=== PATIENT | female | born 1965 | race Caucasian/White ===

== ENCOUNTER 2016-06-16 06:30 | Emergency (ER) | payer MEDICARE, OTHER ==
--- NOTE | 2016-06-16 07:42 | ED CLINICAL REPORT ---
Clinical Report - Physicians/Mid Levels [facility] [address] [place] [address] 06/16/2016 6:31 Patient: SHARIF WILCOX Time Seen: 06:45; initial patient contact. Arrived- By private vehicle. Historian- patient. HISTORY OF PRESENT ILLNESS Is still present. Chief Complaint: HEADACHE. This started about 2 days ago. It was gradual in onset. Onset during light activity. It is described as "pain". Located in the region of the right eye and left eye and occipital region and has had posterior neck pain. Not located in the facial region. At its maximum, severity described as moderate. When seen in the E.D., severity described as moderate. Modifying factors: worsened by moving head; relieved by nothing. The patient has had nausea. No preceding symptoms, blurred vision, photophobia, numbness or weakness. No vomiting. Similar symptoms previously: Many times. Recent medical care: Not recently seen/assessed. REVIEW OF SYSTEMS No fever, sinus pressure or chest pain. She has had muscle aches and a sore throat. All systems otherwise negative, except as recorded above. PAST HISTORY Chronic Headache. Migraine Headache. Atypical Chest Pain. Herpes Zoster. SURGERIES: Cholecystectomy. . Hysterectomy. SOCIAL HISTORY Current every day smoker. No alcohol use or drug use. ADDITIONAL NOTES The nursing notes have been reviewed with agreement regarding the chief complaint, PMH and patient medications and allergies. PHYSICAL EXAM Appearance: Alert. No acute distress. Head: No tenderness to palpation/percussion over the sinuses. Eyes: Pupils equal, round and reactive to light. Eyes normal inspection. No photophobia. Neck: Neck supple. Moderate muscle spasm of the right and left posterior neck. Soft tissue tenderness in the right upper neck area and left upper neck area. No meningeal signs. No vertebral tenderness. CVS: Normal heart rate and rhythm. Heart sounds normal. Respiratory: No respiratory distress. Breath sounds normal. Skin: No rash. Neuro: Oriented X 3. Alert. Mood/affect normal. Speech normal. Cranial nerves normal (as tested). No cerebellar findings. No motor deficit. No sensory deficit. Reflexes normal. PROGRESS AND PROCEDURES Course of Care: Toradol 60mg IM given. Physical exam findings are improved. Symptoms much better. Disposition: Discharged home in good and improved condition. Condition: good. CLINICAL IMPRESSION Episodic tension-type headache resistant to treatment. INSTRUCTIONS Your Current Medications: CONTINUE TAKING THE FOLLOWING MEDICATIONS: Tramadol HCL Oral : 100 mg 2x a day. Prescription Medications: Baclofen 10 mg: take 1 orally every 8 hours. Dispense thirty (30). No refills. Diclofenac 50 mg tablets: take 1 tablet orally every 8 hours as needed for pain or stiffness. Dispense thirty (30). No refill. Follow-up: Follow up with your doctor in about two days. Call for an appointment. Screening today revealed the patient's blood pressure to be in the hypertensive range. The patient should follow up with a primary care provider for blood pressure management. (Electronically signed by Juan Spain Dr. 06/16/2016 7:44)
--- NOTE | 2016-06-16 07:42 | ED ORDER SUMMARY ---
..... Patient: SHARIF WILCOX OrderSheet [facility] VisitID: [id number] [address] [place] [address] 51y, F Registration Date/Time: 06/16/2016 ORDER SHEET Weight: 56.6 kg (stated) Allergies: Gabapentin GENERAL ORDERS: Rapid Influenza Screen (Nasal Pharyngeal) (swab) Urgent (06:54 06/16/2016 JQuivey R.N. per protocol) (6:56 CHagerty ER Hydraulic Governor Assembler) Culture, Strep Screen Urgent (06:54 06/16/2016 JQuivey R.N. per protocol) (6:56 CHagerty ER Hydraulic Governor Assembler) MEDICATION ORDERS: Zofran ODT PO 4 mg (NOW) (06:54 06/16/2016 JQuivey R.N. per protocol) (6:55 JQuivey R.N.) Toradol IM 60 mg (NOW) (07:02 06/16/2016 Amanda Muller) (Ack 7:02 JQuivey R.N.) (7:08 JQuivey R.N.) IV FLUIDS: ORDER SHEET NOTES: [Electronically signed by Juan Spain Dr. (07:44 06/16/2016)] [Electronically signed by Keegan Jones R.N. (07:54 06/16/2016)] [Electronically locked/signed by Keegan Jones R.N. (07:54 06/16/2016)]
--- NOTE | 2016-06-16 07:42 | ED NURSING NOTES ---
Clinical Report - Nurses [facility] [address] [place] [address] 06/16/2016 6:31 Patient: SHARIF WILCOX TRIAGE Triage time 06:43. Acuity: LEVEL 3. Chief Complaint: HEADACHE, SORE THROAT and NAUSEA. 06:47. Alert. SEPSIS SCREEN: Sepsis Screen. Negative (no infection suspected/documented). SUE COMA SCORE: Sue Coma Scale: 15- eyes open spontaneously (4); best verbal response- oriented x 4 (5); best motor response- obeys commands (6). --06:47 Jensen Lock R.N. 06:43 06/16/16. BP: 137/97. HR: 75. RR: 16. O2 saturation: 100% on room air. Temp: 97.8 F (oral). Pain level now: 01/01. --06:47 Jensen Lock R.N. Weight: 56.6 kg stated. Height/Length: 58 inches Per Patient. BMI: 26.1. --06:45 Jensen Lock R.N. Medications Tramadol HCL Oral 100 mg, 2x a day. --06:45 Jensen Lock R.N. Medication/allergy information source: the patient. --06:47 Jensen Lock R.N. Allergies Gabapentin. --06:45 Jensen Lock R.N. History Arrived by private vehicle. Historian: patient. Accompanied by spouse. Primary physician (None). Onset. (2 days ago). 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 PAST MEDICAL HX: Immunizations: up-to-date. The patient has had a hysterectomy. SOCIAL HX: Current every day heavy tobacco smoker- less than 1 pack per day. No alcohol use or drug use. No infectious disease exposure. ABUSE ASSESSMENT: No report of abuse. FALL RISK ASSESSMENT: Fall risk assessment completed. No fall risk identified. NUTRITIONAL RISK ASSESSMENT: The nutritional risk assessment revealed no deficiencies. FUNCTIONAL ASSESSMENT: Functional assessment: no impairments noted. LEARNING NEEDS ASSESSMENT: The learning needs assessment revealed no barriers. SKIN INTEGRITY ASSESSMENT: Skin integrity risk assessment completed. No skin integrity risk identified. --06:47 Jensen Lock R.N. PROBLEMS: Chronic Headache. Migraine Headache. Atypical Chest Pain. Herpes Zoster. --06:46 Jensen Lock R.N. ADDITIONAL SURGERIES: Cholecystectomy. . Hysterectomy. --06:46 Jensen Lock R.N. Interventions ID band on patient. To treatment room. --06:47 Jensen Lock R.N. PHYSICAL ASSESSMENT 06:47. Ambulatory to room. GENERAL / NEURO / PSYCH: Alert. Oriented X 4. HEENT: No facial asymmetry noted. Mucous membranes are pink. RESPIRATORY: Respirations not labored. SKIN: Skin intact. Skin is warm and dry. Normal skin turgor. --06:47 Jensen Lock R.N. NURSING PROGRESS NOTES 06:47. Head of bed elevated. Two patient identifiers checked. Call light placed in reach. Bed placed in lowest position. Brakes of bed on. Patient ready for evaluation- chart flagged. --06:47 Jensen Lock R.N. 06:55 06/16/2016 Zofran ODT (Ondansetron) PO 4 mg given. Allergies verified and confirmed 5 rights. --06:55 Jensen Lock R.N. 07:06 06/16/2016 Toradol (Ketorolac Tromethamine) IM 60 mg given. Given in the left ventral gluteus. Allergies verified and confirmed 5 rights. --07:08 Jensen Lock R.N. 07:15. Care transferred and report given (Jayde HOFFMANN). --07:29 Jensen Lock R.N. DISPOSITION / DISCHARGE 07:50 06/16/16. Condition at departure: improved. The goals identified in the patient's plan of care were met. No learning barriers present. Discharge instructions provided and reviewed with the patient. Reviewed warnings. Reviewed medication(s). Treatments reviewed. Patient and machine guide base winder verbalized understanding. Written instructions provided in Maltese. The patient was discharged by the physician. She was discharged home and accompanied by family. She left the Emergency Department ambulatory and via private vehicle. Family member driving. FALL RISK ASSESSMENT: Fall risk assessment completed. No fall risk identified. --07:50 Keegan Jones R.N. 07:49 06/16/16. BP: 123/92. HR: 80. RR: 12. O2 saturation: 99% on room air. --07:50 Keegan Jones R.N. 07:50 06/16/16. Departure time: 07:50. --07:50 Keegan Jones R.N. Locked/Released at 06/16/2016 7:54 by Keegan Jones R.N.
--- NOTE | 2016-06-16 07:42 | ED NURSING NOTES ---
Clinical Report - Nurses [facility] [address] [place] [address] 06/16/2016 6:31 Patient: SHARIF WILCOX TRIAGE Triage time 06:43. Acuity: LEVEL 3. Chief Complaint: HEADACHE, SORE THROAT and NAUSEA. 06:47. Alert. SEPSIS SCREEN: Sepsis Screen. Negative (no infection suspected/documented). SUE COMA SCORE: Sue Coma Scale: 15- eyes open spontaneously (4); best verbal response- oriented x 4 (5); best motor response- obeys commands (6). --06:47 Jensen Lock R.N. 06:43 06/16/16. BP: 137/97. HR: 75. RR: 16. O2 saturation: 100% on room air. Temp: 97.8 F (oral). Pain level now: 01/01. --06:47 Jensen Lock R.N. Weight: 56.6 kg stated. Height/Length: 58 inches Per Patient. BMI: 26.1. --06:45 Jensen Lock R.N. Medications Tramadol HCL Oral 100 mg, 2x a day. --06:45 Jensen Lock R.N. Medication/allergy information source: the patient. --06:47 Jensen Lock R.N. Allergies Gabapentin. --06:45 Jensen Lock R.N. History Arrived by private vehicle. Historian: patient. Accompanied by spouse. Primary physician (None). Onset. (2 days ago). 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 PAST MEDICAL HX: Immunizations: up-to-date. The patient has had a hysterectomy. SOCIAL HX: Current every day heavy tobacco smoker- less than 1 pack per day. No alcohol use or drug use. No infectious disease exposure. ABUSE ASSESSMENT: No report of abuse. FALL RISK ASSESSMENT: Fall risk assessment completed. No fall risk identified. NUTRITIONAL RISK ASSESSMENT: The nutritional risk assessment revealed no deficiencies. FUNCTIONAL ASSESSMENT: Functional assessment: no impairments noted. LEARNING NEEDS ASSESSMENT: The learning needs assessment revealed no barriers. SKIN INTEGRITY ASSESSMENT: Skin integrity risk assessment completed. No skin integrity risk identified. --06:47 Jensen Lock R.N. PROBLEMS: Chronic Headache. Migraine Headache. Atypical Chest Pain. Herpes Zoster. --06:46 Jensen Lock R.N. ADDITIONAL SURGERIES: Cholecystectomy. . Hysterectomy. --06:46 Jensen Lock R.N. Interventions ID band on patient. To treatment room. --06:47 Jensen Lock R.N. PHYSICAL ASSESSMENT 06:47. Ambulatory to room. GENERAL / NEURO / PSYCH: Alert. Oriented X 4. HEENT: No facial asymmetry noted. Mucous membranes are pink. RESPIRATORY: Respirations not labored. SKIN: Skin intact. Skin is warm and dry. Normal skin turgor. --06:47 Jensen Lock R.N. NURSING PROGRESS NOTES 06:47. Head of bed elevated. Two patient identifiers checked. Call light placed in reach. Bed placed in lowest position. Brakes of bed on. Patient ready for evaluation- chart flagged. --06:47 Jensen Lock R.N. 06:55 06/16/2016 Zofran ODT (Ondansetron) PO 4 mg given. Allergies verified and confirmed 5 rights. --06:55 Jensen Lock R.N. 07:06 06/16/2016 Toradol (Ketorolac Tromethamine) IM 60 mg given. Given in the left ventral gluteus. Allergies verified and confirmed 5 rights. --07:08 Jensen Lock R.N. 07:15. Care transferred and report given (Jayde HOFFMANN). --07:29 Jensen Lock R.N. DISPOSITION / DISCHARGE 07:50 06/16/16. Condition at departure: improved. The goals identified in the patient's plan of care were met. No learning barriers present. Discharge instructions provided and reviewed with the patient. Reviewed warnings. Reviewed medication(s). Treatments reviewed. Patient and fuel handler verbalized understanding. Written instructions provided in Guyanese. The patient was discharged by the physician. She was discharged home and accompanied by family. She left the Emergency Department ambulatory and via private vehicle. Family member driving. FALL RISK ASSESSMENT: Fall risk assessment completed. No fall risk identified. --07:50 Keegan Jones R.N. 07:49 06/16/16. BP: 123/92. HR: 80. RR: 12. O2 saturation: 99% on room air. --07:50 Keegan Jones R.N. 07:50 06/16/16. Departure time: 07:50. --07:50 Keegan Jones R.N. Locked/Released at 06/16/2016 7:54 by Keegan Jones R.N.
--- NOTE | 2016-06-16 07:42 | ED ORDER SUMMARY ---
..... Patient: SHARIF WILCOX OrderSheet [facility] VisitID: [id number] [address] [place] [address] 51y, F Registration Date/Time: 06/16/2016 ORDER SHEET Weight: 56.6 kg (stated) Allergies: Gabapentin GENERAL ORDERS: Rapid Influenza Screen (Nasal Pharyngeal) (swab) Urgent (06:54 06/16/2016 JQuivey R.N. per protocol) (6:56 CHagerty ER Battery Assembler Dry Cell) Culture, Strep Screen Urgent (06:54 06/16/2016 JQuivey R.N. per protocol) (6:56 CHagerty ER Battery Assembler Dry Cell) MEDICATION ORDERS: Zofran ODT PO 4 mg (NOW) (06:54 06/16/2016 JQuivey R.N. per protocol) (6:55 JQuivey R.N.) Toradol IM 60 mg (NOW) (07:02 06/16/2016 Amanda Muller) (Ack 7:02 JQuivey R.N.) (7:08 JQuivey R.N.) IV FLUIDS: ORDER SHEET NOTES: [Electronically signed by Juan Spain Dr. (07:44 06/16/2016)] [Electronically signed by Keegan Jones R.N. (07:54 06/16/2016)] [Electronically locked/signed by Keegan Jones R.N. (07:54 06/16/2016)]
--- NOTE | 2016-06-16 07:54 | ED MED RECONCILIATION SUMMARY ---
Patient: SHARIF WILCOX Medication Reconciliation Report [facility] VisitID: [id number] [address] [place] [address] 51y, F Registration Date/Time: 06/16/2016 Weight: 56.6 kg Height/Length: 58 in. BMI: 26.1 ALLERGIES: Gabapentin The patient's Home Medications are listed below: CONTINUE TAKING THE FOLLOWING MEDICATIONS: Tramadol HCL Oral 100 mg, 2x a day The source(s) of the original Home Medication information: patient The following Medications were given to the patient in the Emergency Department: Zofran ODT [PO] PO 4 mg, administered: 06/16/2016 6:55:00 AM Toradol [IM] IM 60 mg, administered: 06/16/2016 7:06:00 AM The following Medications were prescribed to the patient: Baclofen 10 mg: take 1 orally every 8 hours. Dispense thirty (30). No refills. -- Juan Spain Dr. Diclofenac 50 mg tablets: take 1 tablet orally every 8 hours as needed for pain or stiffness. Dispense thirty (30). No refill. -- Juan Spain Dr.
--- NOTE | 2016-06-16 07:54 | ED MED RECONCILIATION SUMMARY ---
Patient: SHARIF WILCOX Medication Reconciliation Report VisitID: [id number] [address] [place] [address] 51y, F Registration Date/Time: 06/16/2016 Weight: 56.6 kg Height/Length: 58 in. BMI: 26.1 ALLERGIES: Gabapentin The patient's Home Medications are listed below: CONTINUE TAKING THE FOLLOWING MEDICATIONS: Tramadol HCL Oral 100 mg, 2x a day The source(s) of the original Home Medication information: patient The following Medications were given to the patient in the Emergency Department: Zofran ODT [PO] PO 4 mg, administered: 06/16/2016 6:55:00 AM Toradol [IM] IM 60 mg, administered: 06/16/2016 7:06:00 AM The following Medications were prescribed to the patient: Baclofen 10 mg: take 1 orally every 8 hours. Dispense thirty (30). No refills. -- Juan Spain Dr. Diclofenac 50 mg tablets: take 1 tablet orally every 8 hours as needed for pain or stiffness. Dispense thirty (30). No refill. -- Juan Spain Dr.
--- NOTE | 2016-06-16 07:54 | ED DISCHARGE INSTRUCTIONS ---
Patient: SHARIF WILCOX General Instructions [facility] VisitID: [id number] [address] [place] [address] 51y, F Registration Date/Time: 06/16/2016 Episodic tension-type headache resistant to treatment. INSTRUCTIONS Your Current Medications: CONTINUE TAKING THE FOLLOWING MEDICATIONS: Tramadol HCL Oral : 100 mg 2x a day. Prescription Medications: Baclofen 10 mg: take 1 orally every 8 hours. Dispense thirty (30). No refills. Diclofenac 50 mg tablets: take 1 tablet orally every 8 hours as needed for pain or stiffness. Dispense thirty (30). No refill. Follow-up: Follow up with your doctor in about two days. Call for an appointment. Screening today revealed the patient's blood pressure to be in the hypertensive range. The patient should follow up with a primary care provider for blood pressure management. ADDITIONAL INFORMATION Tension Headache Muscle Tension Headache (also called "stress headache") is a very common cause of head pain. Under stress, some people tense the muscles of their shoulder, neck and scalp without knowing it. If this lasts long enough, a headache can occur. These headaches can be very painful and last for hours or even days. Home Care: If you were given pain medicine for this headache, do not drive yourself home. Arrange for a ride, instead. When you get home, try to sleep. You should feel much better when you wake up. Heat to the back of your neck may relieve neck spasm. Drink only clear liquids or eat a very light diet to avoid nausea/vomiting until symptoms improve. Preventing Future Headaches Identify the sources of stress in your life. These may not be obvious! Learn new ways to handle your stress, such as regular exercise, biofeedback, self-hypnosis and meditation. For more information about this, consult your doctor or go to a local bookstore and review the many books and tapes on this subject. At the first sign of a tension headache, take time out if possible. Remove yourself from the stressful situation, find a quiet comfortable place to sit or lie down and let yourself relax. Heat and deep massage of the tight areas in the neck and shoulders may help reduce muscle spasm. Medicine, such as ibuprofen (Advil or Motrin) or a prescribed muscle relaxant may be helpful at this point. Follow Up with your doctor if the headache is not better within the next 24 hours. If you have frequent headaches you should discuss a treatment plan with your primary care doctor. Ask if you can have medicine to take at home the next time you get a bad headache. This may avoid the need for a visit to the emergency department in the future. Poorly controlled chronic headaches may require a referral to a neurologist (headache specialist). Get Prompt Medical Attention if any of the following occur: Worsening of your head pain or no improvement within 24 hours Repeated vomiting (unable to keep liquids down) Fever of 100.4F (38C) or higher, or as directed by your healthcare provider Stiff neck Extreme drowsiness, confusion or fainting Dizziness, vertigo (dizziness with spinning sensation) Weakness of an arm or leg or one side of the face Difficulty with speech or vision You have been given the following additional information: Headache, Tension (Electronically signed by Juan Spain Dr. 06/16/2016 7:44)
--- NOTE | 2016-06-16 07:54 | ED MAR SUMMARY ---
..... Medication Administration Record [facility] [address] [place] [address] Patient: SHARIF WILCOX Visit ID: [id number] 51y, F Weight: 56.6 kg Height/Length: 58 in BMI: 26.1 ALLERGIES: Gabapentin Given 06:55 06/16/2016 Jensen Lock, R.N. Medication Administered: ZOFRAN ODT [PO] (ONDANSETRON), Dose: 4 mg PO. Medication Ordered: Zofran ODT PO 4 mg (NOW). Given 07:06 06/16/2016 Jensne Lock, R.N. Medication Administered: TORADOL [IM] (KETOROLAC TROMETHAMINE), Dose: 60 mg IM. Medication Ordered: Toradol IM 60 mg (NOW).
--- NOTE | 2016-06-16 07:54 | ED MAR SUMMARY ---
..... Medication Administration Record [facility] [address] [place] [address] Patient: SHARIF WILCOX Visit ID: [id number] 51y, F Weight: 56.6 kg Height/Length: 58 in BMI: 26.1 ALLERGIES: Gabapentin Given 06:55 06/16/2016 Jensen Lock, R.N. Medication Administered: ZOFRAN ODT [PO] (ONDANSETRON), Dose: 4 mg PO. Medication Ordered: Zofran ODT PO 4 mg (NOW). Given 07:06 06/16/2016 Jensen Lock, R.N. Medication Administered: TORADOL [IM] (KETOROLAC TROMETHAMINE), Dose: 60 mg IM. Medication Ordered: Toradol IM 60 mg (NOW).
== END 2016-06-16 07:50 | disposition home or self-care (01) ==
LOC: ED SRH 06:30
DX: G44.201 Tension-type headache, unspecified, intractable (principal); F17.210 Nicotine dependence, cigarettes, uncomplicated
CPT/HCPCS: 90154; 90159; 90627; 91400